=== PATIENT | male | born 1985 | race Caucasian/White ===

== ENCOUNTER 2018-05-15 22:51 | Inpatient (IN) | payer MEDICAID ==
[~2018-05-15] VITALS: Ht 193 cm; Wt 127.0 kg
[2018-05-15 23:25] VITALS: BP_SYST 103; BP_SYST 111; BP_DIAS 57; BP_DIAS 71
--- NOTE | 2018-05-15 23:35 | NUR ---
TELE/RN NOTES DIRECT ADMIT PATIENT IS A 32YO MALE WHO CAME [facility] ER FOR NSTEMI. REPORTED CHEST PAIN WITH DIZZINESS, PATIETN WIT A HISTORY OF SUBSTANCE ABUSE , POSITIVE OF COCAINE AND METAMPHETAMINE, HOMELESS, USE OF OPIODS, DM, HTN AND HEPC, NON COMPLIANT TO MEDICATION, REFUSAL TO HAVE TELE MONITORED. REFUSAL TO HAVE SKIN CHECK AT THIS TIME, BELONGINGS CHECK, AMBULATORY, IV SITE ON RIGHT WRIST PATENT,MD RASCON ADMITTING DR, FOR SMOKING CESSATION AND MONITORING, ROOM ORIENTATION DONE, REFUSE FLU VACCINE.WILL MONITOR.
[2018-05-16] VITALS: BP 134/74
[2018-05-16 00:02] VITALS: BP 152/98
[2018-05-16] MEDS ORDERED: ACETAMINOPHEN 325 MG TABLET PO PRN (00:30)
[2018-05-16] MEDS ORDERED: MAG HYDROX/AL HYDROX/SIMETH 30 ML UDC PO PRN (00:30)
[2018-05-16] MEDS ORDERED: ONDANSETRON HCL/PF 4 MG/2 ML VIAL IVP PRN (00:30)
[2018-05-16] MEDS ORDERED: ZOLPIDEM TARTRATE 5 MG TABLET PO PRN (00:30)
[2018-05-16] MEDS ORDERED: LORAZEPAM 1 MG TABLET PO PRN (00:30)
[2018-05-16] MEDS ORDERED: MAGNESIUM HYDROXIDE 30 ML UDC PO PRN (00:30)
[2018-05-16] MEDS ORDERED: NICOTINE PATCH (21MG) 21 MG PATCH.TD24 TD SCH (01:00)
[2018-05-16] MEDS ORDERED: LORAZEPAM 1 MG TABLET PO ONE (01:00)
--- NOTE | 2018-05-16 01:21 | NUR ---
TELE/RN NOTES PATIENT UNABLE TO SIT STILL, PACING AND ATIVAN ORDERED , 1MG GIVEN AND ANOTHER ONE PER MD , WILL MONITOR.
--- NOTE | 2018-05-16 06:38 | NUR ---
324-2 TELE/RN NOTES PATIENT AWAKE, AND REQUIRE A ONE ON ONE SITTER, MONITOIRNG FOR ANY CHANGES, CALL LIGHTS WITHIN REACH, BED LOCKED.
[2018-05-16] MEDS ORDERED: PANTOPRAZOLE 40 MG TABLET.DR PO SCH (07:30)
--- NOTE | 2018-05-16 07:30 | NUR ---
PATHOLOGIST NOTES PT IN BED, ASLEEP, EASY TO AROUSE, NO SIGN OF PAIN OR DISTRESS, CALL LIGHT WITHIN REACH, SITTER AT BEDSIDE, SAFETY PRECAUTIONS OBSERVED.
[2018-05-16] MEDS ORDERED: GABA800T11 PO (07:55)
[2018-05-16] MEDS ORDERED: CLON0.1T PO (07:55)
[2018-05-16] MEDS ORDERED: GABAPENTIN 400 MG CAPSULE PO SCH (09:00)
[2018-05-16] MEDS ORDERED: CLONIDINE HCL 0.1 MG TABLET PO SCH (09:00)
[2018-05-16 09:51] VITALS: BP 137/76
--- NOTE | 2018-05-16 11:33 | NUR ---
Social service consult requested by ESTHER Yang for possible homelessness and drug use. Pt. is a 32 year old male who was admitted to [facility] from [place] for chest pain. SW met with pt. by the doorway of his room. Pt. has a sitter due to aggressive behavior last night. However. pt. is not aggressive at this time. Pt. appears anxious and doesn't want to go to his bed or inside his room. He prefers to talk in the doorway. Pt. is alert and oriented x 4. Pt. appears anxious and is in a hurry to leave the hospital. Pt. states he is not homeless and he resides with roommates at [id number] [id number]. Pt. called his ex- Mary for a uber ride to his home. SW spoke to Mary who informed SW that she has not spoken to the pt. in 3 to 4 years and she resides in [place]. SW informed her the hospital will provide him with a ride home. Pt. gave his emergency contact as his father Misha Sr . 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 SW inquired with pt. if he uses any drugs and pt. denied. SW confronted pt. regarding his H&P stating drug use and pt. stated, " I don't." Pt. is not forthcoming of his drug use. Pt. did state he uses marijuana and smokes one to 2 packs of cigarettes a day. JACQUIE offered pt. drug and alcohol resources, however pt. declined. Pt. to be transported via taxi to his home address that he provided. No other social service needs are requested at this time. LAKIA Olsen has been updated with pt's discharge plan.
--- NOTE | 2018-05-16 11:40 | NUR ---
RN MS NOTES PT AWAKE, WALKING INSIDE HIS ROOM AND ALONG THE HALLWAY, ALERT AND ORIENTED, CALM, DENIES PAIN, NOT IN DISTRESS, SEEN BY DR. GIBBONS, SEEN BY OMAR SANTANA, DISCHARGE ORDER GIVEN TO PT, DISCHARGE AND MEDICATION INSTRUCTIONS PROVIDED TO PT, VERBALIZED UNDERSTANDING, BELONGINGS ACCOUNTED FOR, PT REFUSED SKIN CHECK AND PHOTOS, ASSISTED BY PRINTING TECHNICIAN AND RN TO HOSPITAL LOBBY, LEFT VIA TAXI IN STABLE CONDITION.
== END 2018-05-16 11:45 | disposition home or self-care (01) | DRG 198 ==
LOC: TELE 22:51 → MED 05-16 10:17
PROVIDERS: ADMIT Nurse Practitioner Acute Care; ATTEND Nurse Practitioner Acute Care
DX: I25.10 Atherosclerotic heart disease of native coronary artery without angina pectoris (principal); E66.01 Morbid (severe) obesity due to excess calories; E11.9 Type 2 diabetes mellitus without complications; I10 Essential (primary) hypertension; Z68.34 Body mass index [BMI] 34.0-34.9, adult; F17.210 Nicotine dependence, cigarettes, uncomplicated; Z59.0 Homelessness; Z79.899 Other long term (current) drug therapy; F12.10 Cannabis abuse, uncomplicated; F15.10 Other stimulant abuse, uncomplicated; Z86.19 Personal history of other infectious and parasitic diseases
CPT/HCPCS: 87081-TC; G0378